=== PATIENT | female | born 1975 | race Caucasian/White ===

== ENCOUNTER 2021-08-11 11:04 | Emergency (ER) | payer SELFPAY ==
[~2021-08-11] VITALS: Ht 167.6 cm; Wt 66.2 kg
[2021-08-11 11:05] VITALS: BP 137/83
== END 2021-08-11 12:28 | disposition left against medical advice (07) ==
LOC: M ED 11:04
DX: Z53.29 Procedure and treatment not carried out because of patient's decision for other reasons (principal)